=== PATIENT | female | born 1955 | race Caucasian/White ===

== ENCOUNTER → 2020-05-25 | Outpatient (CLI) | payer OTHER ==
[~2020-05-25] MED LIST: CHLO4 PO; DHEA PO; EC MATRIXX TAB1 EACH PO; FISH OIL 1,0001 EAC1 PO; GABA300 PO; GLIP5 PO; HYDCHL12.5 PO; IBUP800 PO; MELA3 PO; OMEP20ER PO; PSEU120ER PO; ROSU10TA PO; Robaxin750 MG PO; VALS80 PO; VENL25 PO; VITAMIN D35000 UNI2 PO; ZOLP5 PO
[2020-05-28 15:10] LABS: HPV 16 Negative (Negative); HPV 18 Negative (Negative); HPV OTHER HR TYPES Negative (Negative)
== END | disposition home or self-care (01) ==
LOC: LAB 11:15 → LAB SHORT 11:15
PROVIDERS: Obstetrics & Gynecology
DX: Z01.419 Encounter for gynecological examination (general) (routine) without abnormal findings (principal)
CPT/HCPCS: 87624; G0123

== ENCOUNTER 2021-09-21 07:59 | Emergency (ER) | payer OTHER ==
[~2021-09-21] VITALS: Ht 167.6 cm; Wt 110.2 kg
[2021-09-21 08:43] LABS: BASOPHILS ABSOLUTE AUTO 0.07 K/mm3 (0.00-0.23); BASOPHILS PERCENT AUTO 1 % (0-2); EOSINOPHILS ABSOLUTE AUTO 0.07 K/mm3 (0.00-0.68); EOSINOPHILS PERCENT AUTO 1 % (0-6); Hemoglobin 14.1 g/dL (11.5-16.0); IMMATURE GRAN ABSOLUTE AUTO 0.03 K/mm3 (0.00-0.10); IMMATURE GRAN PERCENT AUTO 0 % (0-1); LYMPHOCYTES ABSOLUTE AUTO 1.84 K/mm3 (0.84-5.20); LYMPHOCYTES PERCENT AUTO 24 % (21-46); MONOCYTES ABSOLUTE AUTO 0.69 K/mm3 (0.16-1.47); MONOCYTES PERCENT AUTO 9 % (4-13); Mean Corpuscular HGB 24.1 pg (26.0-34.0); Mean Corpuscular HGB Conc 30.7 g/dL (31.5-36.5); Mean Corpuscular Volume 79 fL (80-100); Mean Platelet Volume 11.4 fL (9.1-12.4); NEUTROPHILS PERCENT AUTO 65 % (41-73); Platelet Count 252 K/mm3 (150-400); RDW Coefficient Variation 13.6 % (11.7-14.2); RDW Standard Deviation 38.5 fL (35.1-46.3); Red Blood Cell Count 5.85 M/mm3 (3.80-5.20)
[2021-09-21 09:03] LABS: Anion Gap 9 mmol/L (6-16); Blood Urea Nitrogen 10 mg/dL (8-24); Bun/Creatinine Ratio 20.6 (12.0-20.0); CO2, Blood 25 mmol/L (21-32); Calcium, Blood 9.2 mg/dL (8.5-10.1); Chloride, Blood 103 mmol/L (98-108); Creatinine, Blood 0.49 mg/dL (0.40-1.00); Glomerular Filtration Rate >60 (60-); Glucose, Blood 283 mg/dL (70-99); Potassium, Blood 3.5 mmol/L (3.5-5.5); Sodium, Blood 137 mmol/L (136-145)
[2021-09-22] MEDS ORDERED: Acetic Acid15 ML (10:08)
[2021-09-22] MEDS ORDERED: IMBRUVICA420 MG (10:09)
== END 2021-09-21 11:32 | disposition home or self-care (01) ==
LOC: ER 07:59
PROVIDERS: Emergency Medicine
DX: I16.0 Hypertensive urgency (principal); I10 Essential (primary) hypertension; M79.7 Fibromyalgia; Z88.2 Allergy status to sulfonamides; Z79.899 Other long term (current) drug therapy; Z79.84 Long term (current) use of oral hypoglycemic drugs
CPT/HCPCS: 36415; 80048; 85025; 96374; 96375; 99284-25; J0780; J1200; J3475

== ENCOUNTER 2021-09-22 09:41 | Day surgery (SDC) | payer OTHER ==
[~2021-09-22] VITALS: Ht 167.6 cm; Wt 103.2 kg
[2021-09-22] MEDS ORDERED: Acetic Acid15 ML (10:08)
[2021-09-22] MEDS ORDERED: IMBRUVICA420 MG (10:09)
--- NOTE | 2021-09-22 11:02 | NUR ---
09/22/21 1102 JEZ DRAKE PT [id number] @1030 CASE REVIEWED BY DIRECTOR DR.VU Rangel CONSULTATION IN PREOP. END NOTE [email or web address]
== END 2021-09-22 12:33 | disposition home or self-care (01) ==
LOC: ORSCSDS 09:41
PROVIDERS: Student in an Organized Health Care Education/Training Program
PROC: 0DBK8ZX Excision of Ascending Colon, Via Natural or Artificial Opening Endoscopic, Diagnostic (ICD-10-PCS; principal; 2021-09-22 11:00)
PROC: 0DBN8ZX Excision of Sigmoid Colon, Via Natural or Artificial Opening Endoscopic, Diagnostic (ICD-10-PCS; principal; 2021-09-22 11:00)
PROC: 0DBH8ZX Excision of Cecum, Via Natural or Artificial Opening Endoscopic, Diagnostic (ICD-10-PCS; principal; 2021-09-22 11:00)
PROC: 0DBL8ZX Excision of Transverse Colon, Via Natural or Artificial Opening Endoscopic, Diagnostic (ICD-10-PCS; principal; 2021-09-22 11:00)
DX: Z86.010 Personal history of colon polyps (principal); K63.5 Polyp of colon; D12.2 Benign neoplasm of ascending colon; D12.0 Benign neoplasm of cecum; D12.3 Benign neoplasm of transverse colon; D12.5 Benign neoplasm of sigmoid colon; G47.33 Obstructive sleep apnea (adult) (pediatric); I10 Essential (primary) hypertension; E11.9 Type 2 diabetes mellitus without complications; Z79.899 Other long term (current) drug therapy
CPT/HCPCS: 82947; 88305; J2704; J7120

== ENCOUNTER 2021-11-01 16:46 | Emergency (ER) | payer MEDICARE, OTHER ==
[~2021-11-01] VITALS: Ht 167.6 cm; Wt 108.9 kg
[~2021-11-01 16:46] MED LIST changes: +Acetic Acid15 ML; +IMBRUVICA420 MG
== END 2021-11-01 17:26 | disposition home or self-care (01) ==
LOC: ER 16:46
DX: U07.1 COVID-19 (principal); I10 Essential (primary) hypertension; Z88.2 Allergy status to sulfonamides; Z79.899 Other long term (current) drug therapy
CPT/HCPCS: 99284

== ENCOUNTER 2021-11-05 19:35 | Emergency (ER) | payer MEDICARE, OTHER ==
[~2021-11-05] VITALS: Ht 167.6 cm; Wt 108.9 kg
[2021-11-05] MEDS ORDERED: HYDHCL25 (21:29)
[2021-11-05] MEDS ORDERED: FISH OIL 1,2001 EAC7 (21:30)
[2021-11-05] MEDS ORDERED: PIOG15 PO (21:31)
[2021-11-05] MEDS ORDERED: METF500 PO (21:32)
[2021-11-05] MEDS ORDERED: AMLO5 PO (21:32)
[2021-11-05] MEDS ORDERED: ONDA4ODT MM (21:50)
== END 2021-11-05 23:20 | disposition home or self-care (01) ==
LOC: ER 19:35
DX: U07.1 COVID-19 (principal); J12.82 Pneumonia due to coronavirus disease 2019; I10 Essential (primary) hypertension; Z88.2 Allergy status to sulfonamides; Z79.899 Other long term (current) drug therapy
CPT/HCPCS: 36415; 96374; 99284-25; A9270; J0780

== ENCOUNTER 2021-11-12 16:12 | Emergency (ER) | payer MEDICARE, OTHER ==
[~2021-11-12] VITALS: Ht 167.6 cm; Wt 108.9 kg
[~2021-11-12 16:12] MED LIST changes: +AMLO5 PO; +FISH OIL 1,2001 EAC7; +HYDHCL25; +METF500 PO; +ONDA4ODT MM; +PIOG15 PO
[2021-11-12 20:40] LABS: Bun/Creatinine Ratio 34.3 (12.0-20.0); Calcium, Blood 8.4 mg/dL (8.5-10.1); Creatinine, Blood 1.08 mg/dL (0.40-1.00); Potassium, Blood 2.6 mmol/L (3.5-5.5)
[2021-11-12 22:35] LABS: Bun/Creatinine Ratio 33.3 (12.0-20.0); Calcium, Blood 8.6 mg/dL (8.5-10.1); Creatinine, Blood 1.05 mg/dL (0.40-1.00)
[2021-11-12] MEDS ORDERED: POTCHL20ER PO (22:57)
== END 2021-11-12 23:19 | disposition home or self-care (01) ==
LOC: ER 16:12
PROVIDERS: Emergency Medicine
DX: U07.1 COVID-19 (principal); E87.6 Hypokalemia; I10 Essential (primary) hypertension; Z88.1 Allergy status to other antibiotic agents; Z88.2 Allergy status to sulfonamides; Z88.8 Allergy status to other drugs, medicaments and biological substances; Z79.84 Long term (current) use of oral hypoglycemic drugs; Z79.899 Other long term (current) drug therapy
CPT/HCPCS: 80048; 93005; 93010; A9270; J2550; J3480; J7030

== ENCOUNTER 2022-09-21 18:29 | Emergency (ER) | payer OTHER ==
[~2022-09-21] VITALS: Ht 167.6 cm; Wt 106.6 kg
[~2022-09-21 18:29] MED LIST changes: +POTCHL20ER PO
== END 2022-09-21 21:34 | disposition home or self-care (01) ==
LOC: ER 18:29
DX: S63.91XA Sprain of unspecified part of right wrist and hand, initial encounter (principal); I10 Essential (primary) hypertension; M79.7 Fibromyalgia; Z88.0 Allergy status to penicillin; Z88.2 Allergy status to sulfonamides; Z88.8 Allergy status to other drugs, medicaments and biological substances; Z79.899 Other long term (current) drug therapy; Z79.84 Long term (current) use of oral hypoglycemic drugs; W18.30XA Fall on same level, unspecified, initial encounter
CPT/HCPCS: 29125; 73120; 99283-25

== ENCOUNTER 2022-09-25 08:47 | Day surgery (SDC) | payer OTHER | END 2022-09-25 10:48 | disposition home or self-care (01) | DX: Z86.010 Personal history of colon polyps (principal); Z80.0 Family history of malignant neoplasm of digestive organs; D12.4 Benign neoplasm of descending colon; K63.5 Polyp of colon; G47.33 Obstructive sleep apnea (adult) (pediatric); D68.51 Activated protein C resistance; I10 Essential (primary) hypertension; E11.9 Type 2 diabetes mellitus without complications; Z85.72 Personal history of non-Hodgkin lymphomas; K21.9 Gastro-esophageal reflux disease without esophagitis; M79.7 Fibromyalgia; Z79.899 Other long term (current) drug therapy; Z79.84 Long term (current) use of oral hypoglycemic drugs ==

== ENCOUNTER 2023-10-26 19:32 | Emergency (ER) | payer OTHER ==
[~2023-10-26] VITALS: Ht 167.6 cm; Wt 111.6 kg
[2023-10-26 19:38] VITALS: BP 177/109
[2023-10-26 20:05] LABS: BASOPHILS ABSOLUTE AUTO 0.04 K/mm3 (0.00-0.23); BASOPHILS PERCENT AUTO 0 % (0-2); EOSINOPHILS PERCENT AUTO 0 % (0-6); Hematocrit 48.2 % (33.0-51.0); Hemoglobin 15.7 g/dL (11.5-16.0); IMMATURE GRAN ABSOLUTE AUTO 0.08 K/mm3 (0.00-0.10); IMMATURE GRAN PERCENT AUTO 1 % (0-1); LYMPHOCYTES ABSOLUTE AUTO 0.26 K/mm3 (0.84-5.20); LYMPHOCYTES PERCENT AUTO 2 % (21-46); MONOCYTES ABSOLUTE AUTO 0.26 K/mm3 (0.16-1.47); MONOCYTES PERCENT AUTO 2 % (4-13); Mean Corpuscular HGB 26.6 pg (26.0-34.0); Mean Corpuscular HGB Conc 32.6 g/dL (31.5-36.5); Mean Corpuscular Volume 82 fL (80-100); Mean Platelet Volume 11.4 fL (9.1-12.4); NEUTROPHILS ABSOLUTE AUTO 13.72 K/mm3 (1.96-9.15); NEUTROPHILS PERCENT AUTO 96 % (41-73); Platelet Count 276 K/mm3 (150-400); RDW Coefficient Variation 14.6 % (11.7-14.2); RDW Standard Deviation 42.5 fL (35.1-46.3); White Blood Cell Count 14.36 K/mm3 (4.00-11.30)
[2023-10-26 20:35] LABS: Albumin, Blood 3.5 g/dL (3.4-5.0); Bilirubin, Total 0.5 mg/dL (0.1-1.0); Calcium, Blood 8.4 mg/dL (8.5-10.1); Creatinine, Blood 0.5 mg/dL (0.40-1.00); Globulin, Blood 3.6 g/dL (2.2-4.0); Potassium, Blood 3.7 mmol/L (3.5-5.5); Total Protein, Blood 7.1 g/dL (6.4-8.2)
[2023-10-26 20:45] LABS: Influenza A, PCR NEGATIVE (NEGATIVE); Influenza B, PCR NEGATIVE (NEGATIVE); Resp Syncytial Virus, PCR NEGATIVE (NEGATIVE); SARS-Cov-2 (COVID-19) PCR, MMC NEGATIVE (NEGATIVE)
[2023-10-26] MEDS ORDERED: ONDA4ODT MM (23:51)
== END 2023-10-27 00:14 | disposition home or self-care (01) ==
LOC: ER 19:32
PROVIDERS: Student in an Organized Health Care Education/Training Program
DX: A08.4 Viral intestinal infection, unspecified (principal); Z20.822 Contact with and (suspected) exposure to COVID-19; I10 Essential (primary) hypertension; M79.7 Fibromyalgia; Z79.84 Long term (current) use of oral hypoglycemic drugs; Z79.899 Other long term (current) drug therapy; Z88.0 Allergy status to penicillin; Z88.1 Allergy status to other antibiotic agents; Z88.2 Allergy status to sulfonamides; Z88.5 Allergy status to narcotic agent; Z88.8 Allergy status to other drugs, medicaments and biological substances
CPT/HCPCS: 0241U; 80053; 83690; 85025; 93005; 93010; 96361; 96374; 96375; 99284-25; A9270; J1885; J2405; J7030

== ENCOUNTER → 2024-04-26 | Outpatient (CLI) | payer MEDICARE ==
[~2024-04-26] MED LIST changes: +CEFP200 PO
== END | disposition home or self-care (01) ==
LOC: LAB SHORT 14:04 → LAB 14:04
DX: N39.0 Urinary tract infection, site not specified (principal)
CPT/HCPCS: 87077; 87086; 87186

== ENCOUNTER → 2024-10-11 | Outpatient (CLI) | payer MEDICARE, OTHER | LOC: LAB 14:28 → LAB SHORT 14:28 | DX: N39.0 Urinary tract infection, site not specified (principal) | CPT/HCPCS: 87077; 87086; 87186 ==